=== PATIENT | female | born 1980 | race Caucasian/White ===

== ENCOUNTER 2016-12-10 21:36 | Emergency (ER) | payer BC ==
[2016-12-10 21:46] VITALS: BP 106/55
[2016-12-10] MEDS ORDERED: AMOX TR/POTASSIUM CLAVULANATE 875 MG TABLET PO ONE (21:53)
[2016-12-10] MEDS ORDERED: AMOX TR/POTASSIUM CLAVULANATE 875 MG TABLET ONE (21:54)
--- NOTE | 2016-12-10 21:57 | ERNOTE ---
Medical Problem HPI - Narrative Date of Service: 12/10/16 - General Chief Complaint: General Assessment Time Seen by Provider: 12/10/16 21:47 Source: patient, family - Immun/Allergies/Home Medications Immunizations: IMMUNIZATION HX Immunizations Up to Date Yes History of Influenza Vaccine Yes Hx Pneumococcal Vaccination No Allergies/Adverse Reactions: Allergies azithromycin [From Zithromax Z-Antonio] Allergy (Verified 11/10/13 15:16) Home Medications: HOME MEDICATIONS Vit No.128/Iron/FA [Eql Vitamin Tablet] 1 each PO DAILY [Last Taken 11/10/13 08:00] Docusate Sodium [Colace] 100 mg PO BID #0 capsule 11/12/13 [Last Taken Unknown] Ibuprofen [Motrin] 200 - 800 mg PO Q6H PRN #0 tablet 11/12/13 [Last Taken Unknown] Albuterol Sulfate [Proair Hfa] 1 - 2 puff IH Q4H PRN #1 inhaler 12/10/16 [Last Taken Unknown] Amox Tr/Potassium Clavulanate [Augmentin 875-125 Tablet] 875 mg PO Q12H #14 tab 12/10/16 [Last Taken Unknown] Pantoprazole Sodium [Protonix] 40 mg PO DAILY 12/10/16 [Last Taken Unknown] - History of Present History Narrative: This is a 36-year-old female who is 34 weeks comes into the emergency department complaining of some shortness of breath and malaise low-grade fever and joint pain. Patient says she woke up from a nap around 2:00 this afternoon. She says when she woke up she had a sour taste of acid in her mouth. She said she actually had some come out of her nose. She says she feels like she might have aspirated. The patient had an aspiration pneumonia with her last . Since the episode with the acid in her mouth and nose , she says she's become slightly short of breath, aching all over, feels just like when she had aspiration pneumonia in the past. She has been coughing. No significant chest discomfort. No other complaints. He says that the baby last moved on the way here in the car. He says he is usually more active at this time a night Review of Systems - Review of Systems Constitutional: Present: chills, malaise EYE: Present: no symptoms reported ENT: Present: no symptoms reported Respiratory: Present: shortness of breath, cough Cardiology: Present: no symptoms reported Gastrointestinal/Abdominal: Present: other Genitourinary: Present: no symptoms reported Musculoskeletal: Present: no symptoms reported Skin: Present: no symptoms reported - reflux Neurological: Present: no symptoms reported Endocrine: Present: no symptoms reported Hematologic/Lymphatic: Present: no symptoms reported Psych: Present: no symptoms reported All Other Systems: All systems neg except as marked - Patient's Past Medical History Patient History - Medical: No pertinent hx Patient History - Cardiac/Respiratory: Pneumonia, Other Patient History - Cancer: No Hx of Cancer Patient History - Surgical Procedures: No surgical history Patient History - Other: None - Social History Living Situations: home Abuse History: No History of abuse Psych History: No pertinent hx Smoking Status: Former smoker Alcohol Use: none Drug Use: none - Immunizations Immunizations Up to Date: Yes Hx Pneumococcal Vaccination: No History of Influenza Vaccine: Yes Physical Exam - Physical Exam General Appearance: Present: wd/wn, alert, no apparent distress Head Exam: Present: normal inspection, no evidence of injury Eye Exam: Normal inspection: bilateral, PERRL: bilateral, EOMI: bilateral Ears, Nose, Throat: Present: normal ENT inspection, normal pharynx Neck: Present: normal inspection, nontender Respiratory: Present: no respiratory distress, normal breath sounds, no accessory muscle use, chest nontender, lungs clear Cardiovascular/Chest: Present: regular rate, rhythm, no murmur, normal peripheral pulses Gastrointestinal/Abdominal: Present: normal bowel sounds, nontender, nondistended, soft, no organomegaly Back Exam: Present: normal inspection, normal range of motion, no CVA tenderness , no vertebral tenderness Extremity Exam: Present: normal inspection, non-tender, normal range of motion, no edema Neurological Exam: Present: alert, oriented, normal mood/affect, no motor/ sensory deficits Skin Exam: Present: normal color, warm/dry Lymphatic Exam: Present: no adenopathy ED Progress - Vital Signs Patient's Vital Signs:: I have reviewed the patient's vital signs. Vital Signs: Vital Signs 12/10/16 21:41 Temperature 36.4 C L Pulse Rate 96 Respiratory 18 Rate Blood Pressure 106/55 O2 Sat by Pulse 98 Oximetry - Progress/Reassessment Chief Complaint: General Assessment Departure Clinical Impression: Aspiration into respiratory tract - Departure Disposition: Left without seen by physician Condition: Good Instructions: Aspiration Pneumonia Additional Instructions: As we discussed, I don't think an x-ray is necessary. Your symptoms are similar to when he had the aspiration pneumonia in the past. He was certainly at risk being . You had acid in her mouth and nose when he woke up from her nap. It all makes clinical sense. Antibiotics will not cause difficulty. Certainly getting a pneumonia could. Next Take the prescribed Augmentin. Take it for all 7 days. Use the inhaler as needed. Go immediately over to OB to have monitoring performed. If you develop new concerning symptoms she should return to the ER. Follow-up family doctor Referrals: Ed Hung DO [Primary Care Provider] - Prescriptions: Albuterol Sulfate [Proair Hfa] 1 - 2 puff IH Q4H PRN #1 inhaler PRN Reason: Shortness Of Breath Amox Tr/Potassium Clavulanate [Augmentin 875-125 Tablet] 875 mg PO Q12H #14 tab
== END 2016-12-10 22:49 | disposition left against medical advice (07) ==
LOC: ER 21:36
DX: J69.0 Pneumonitis due to inhalation of food and vomit (principal); Z33.1 Pregnant state, incidental; Z3A.34 34 weeks gestation of pregnancy

== ENCOUNTER 2017-01-04 17:05 | Inpatient (IN) | payer BC ==
[2017-01-04] MEDS ORDERED: LIDOCAINE HCL 50 ML VIAL PERI PRN (17:15)
[2017-01-04] MEDS ORDERED: ONDANSETRON HCL/PF 2 MG/ML VIAL IV PRN (17:15)
[2017-01-04] MEDS ORDERED: OXYTOCIN/DEXTROSE 5%-WATER 30 UNITS/500 ML BAG IV ONE ×2 (17:15→20:18)
[2017-01-04] MEDS ORDERED: RINGER'S SOLUTION,LACTATED 1,000 ML IV ONE (17:15)
[2017-01-04] MEDS ORDERED: DEXTROSE 5%-LACTATED RINGERS 1,000 ML IV PRN (17:15)
[2017-01-04] MEDS ORDERED: GLYCERIN/WITCH HAZEL LEAF 40 APPL BOX TP PRN (20:18)
[2017-01-04] MEDS ORDERED: oxyCODONE HCL/ACETAMINOPHEN 1 TAB TABLET PO PRN (20:18)
[2017-01-04] MEDS ORDERED: HYDROCORTISONE 30 APPL TUBE TP PRN (20:18)
[2017-01-04] MEDS ORDERED: BISACODYL 10 MG SUPP.RECT RC PRN (20:18)
[2017-01-04] MEDS ORDERED: SENNOSIDES 8.6 MG TABLET PO PRN (20:18)
[2017-01-04] MEDS ORDERED: BENZOCAINE/MENTHOL 81 SPRAY CAN TP PRN (20:18)
--- NOTE | 2017-01-04 20:20 | OR ---
Operative Report - Dictated Report Narrative: Spontaneous vaginal delivery of viable male at 1937 on 01/04/2017 with Apgars 9 and 9, weighing 3517 g in KAYLI position. Cord clamping delayed approximately 1 minute Placenta delivered complete, intact, with three vessel cord Estimated blood loss: less than 50 ml Lacerations: First-degree vaginal laceration repaired with 3-0 Vicryl Rapide History for MU Definition: * The number of deliveries resulting in a live the patient experienced prior to current hospitalization * The previous delivery of live twins or any live multiple gestation is considered one live event. *If primagravida or nulliparous is documented select zero for the number of previous live births. Live Events: 3
[2017-01-04] MEDS: IBUPROFEN 800 MG TABLET PO PRN (20:52)
[2017-01-04] MEDS: oxyCODONE HCL/ACETAMINOPHEN 1 TAB TABLET PO PRN (21:11)
[2017-01-04] MEDS: DOCUSATE SODIUM 100 MG CAPSULE PO SCH (21:11)
[2017-01-05] MEDS: oxyCODONE HCL/ACETAMINOPHEN 1 TAB TABLET PO PRN ×7 (00:31→23:33)
[2017-01-05] MEDS: IBUPROFEN 800 MG TABLET PO PRN ×3 (03:39→18:43)
[2017-01-05] MEDS: DOCUSATE SODIUM 100 MG CAPSULE PO SCH ×3 (06:41→20:49)
--- NOTE | 2017-01-05 09:13 | PN ---
Subjective - Date and Time Seen Date: 01/05/17 Time: 09:13 Objective - Vitals Vitals: Last Vital Signs Temp 36.6 C 01/05/17 07:04 Pulse 70 01/05/17 07:04 Resp 16 01/05/17 07:04 BP 94/52 01/05/17 07:04 Pulse Ox Patient denies complaints. Lochia wnl Abdomen - soft, nontender Uterus - firm, at umbilicus - 1 No calf tenderness Impression: day #1 - s/p spontaneous vaginal delivery. Plan: Continue routine care
[2017-01-06] MEDS: IBUPROFEN 800 MG TABLET PO PRN ×2 (07:16→11:18)
[2017-01-06] MEDS: oxyCODONE HCL/ACETAMINOPHEN 1 TAB TABLET PO PRN ×2 (07:17→11:18)
[2017-01-06] MEDS: DOCUSATE SODIUM 100 MG CAPSULE PO SCH ×2 (07:17→09:50)
[2017-01-06 07:22] VITALS: BP 99/51
--- NOTE | 2017-01-06 09:41 | PN ---
Subjective - Date and Time Seen Date: 01/06/17 Time: 09:41 Objective - Vitals Vitals: Last Vital Signs Temp 36.3 C L 01/06/17 07:20 Pulse 81 01/06/17 07:20 Resp 18 01/06/17 07:20 BP 99/51 01/06/17 07:20 Pulse Ox 98 01/05/17 11:38 Patient denies complaints. Lochia wnl Abdomen - soft, nontender Uterus - firm, at umbilicus - 2 No calf tenderness Impression: day #2 - s/p spontaneous vaginal delivery. Plan: Routine discharge instructions
[2017-01-06] MEDS ORDERED: DOCUSATE SODIUM 100 MG CAPSULE PO PRN (14:09)
[2017-01-07] MEDS ORDERED: PRENATAL VITS96/IRON FUM/FOLIC 1 TAB TABLET PO SCH (09:00)
== END 2017-01-06 15:30 | disposition home or self-care (01) | DRG 775 ==
LOC: OB 17:05
PROVIDERS: ADMIT Obstetrics & Gynecology; ATTEND Obstetrics & Gynecology
PROC: 10E0XZZ Delivery of Products of Conception, External Approach (ICD-10-PCS; principal; 2017-01-04)
PROC: 4A1HXCZ Monitoring of Products of Conception, Cardiac Rate, External Approach (ICD-10-PCS; 2017-01-04)
PROC: 0HQ9XZZ Repair Perineum Skin, External Approach (ICD-10-PCS; 2017-01-04)
DX: O70.0 First degree perineal laceration during delivery (principal); Z3A.38 38 weeks gestation of pregnancy; Z37.0 Single live birth

== ENCOUNTER 2017-01-16 23:02 | Emergency (ER) | payer BC ==
--- NOTE | 2017-01-16 23:43 | ERNOTE ---
Medical Problem HPI - General Chief Complaint: General Assessment Time Seen by Provider: 01/16/17 23:33 Source: patient, family Exam Limitations: no limitations - Immun/Allergies/Home Medications Immunizations: IMMUNIZATION HX Immunizations Up to Date Yes History of Influenza Vaccine Yes Hx Pneumococcal Vaccination No Allergies/Adverse Reactions: Allergies azithromycin [From Zithromax Z-Antonio] Allergy (Verified 01/16/17 23:12) Pertussis Vaccines Adverse Reaction (Verified 01/16/17 23:12) salicylates Adverse Reaction (Verified 01/16/17 23:12) Home Medications: HOME MEDICATIONS Vit No.128/Iron/FA [Eql Vitamin Tablet] 1 each PO DAILY [Last Taken 01/03/17] Docusate Sodium [Colace] 100 mg PO BID PRN 01/04/17 [Last Taken 12/21/16] Ferrous Sulfate 325 mg PO DAILY #60 tablet 01/05/17 [Last Taken Unknown] Ibuprofen [Motrin] 200 - 800 mg PO Q6H PRN #100 tab 01/05/17 [Last Taken Unknown ] L.acidoph,Paracasei, B.lactis [Probiotic] 1 each PO DAILY 01/16/17 [Last Taken Unknown] Methylergonovine Maleate [Methergine] 0.2 mg PO TID #5 tablet 01/17/17 [Last Taken Unknown] Misoprostol [Cytotec] 200 mcg PO TID #4 tablet 01/17/17 [Last Taken Unknown] - History of Present History Narrative: Pt had a 12 days ago. Today she began vaginal bleeding. Was not having much bleeding before today and began to have clots around 1:00 this afternoon. Timing: getting worse Severity: mild Review of Systems - Review of Systems Constitutional: Present: weakness. Absent: recent illness, fever, chills EYE: Present: no symptoms reported. Absent: vision changes ENT: Present: no symptoms reported Respiratory: Absent: shortness of breath Cardiology: Absent: chest pain Gastrointestinal/Abdominal: Absent: nausea, vomiting Genitourinary: Present: See HPI, pain - uterine cramping Musculoskeletal: Present: no symptoms reported Skin: Present: no symptoms reported Neurological: Present: dizziness/light-headedness Endocrine: Present: excessive sweating Hematologic/Lymphatic: Present: no symptoms reported Psych: Present: no symptoms reported - Patient's Past Medical History Patient History - Medical: No pertinent hx Patient History - Cardiac/Respiratory: Pneumonia, Other Patient History - Cancer: No Hx of Cancer Patient History - Surgical Procedures: No surgical history Patient History - Other: None - Social History Living Situations: home Abuse History: No History of abuse Psych History: No pertinent hx Smoking Status: Former smoker Alcohol Use: occasionally Drug Use: none - Immunizations Immunizations Up to Date: Yes Hx Pneumococcal Vaccination: No History of Influenza Vaccine: Yes Physical Exam - Physical Exam General Appearance: Present: wd/wn, alert, no apparent distress Head Exam: Present: normal inspection, no evidence of injury Eye Exam: Normal inspection: bilateral Neck: Present: normal inspection, nontender, supple Respiratory: Present: no respiratory distress, no accessory muscle use Gastrointestinal/Abdominal: Present: tenderness - uterine. Uterus boggy, at -2 Pelvic Exam: Present: deferred - pt declined pelvic exam Back Exam: Present: normal inspection, no CVA tenderness Extremity Exam: Present: normal inspection, normal range of motion, no edema Neurological Exam: Present: alert, oriented, normal mood/affect, no motor/ sensory deficits Skin Exam: Present: normal color, warm/dry Lymphatic Exam: Present: no adenopathy ED Progress - Results and Orders Patient's Lab Results:: I have reviewed the patient's lab results. Results and Orders: Laboratory Tests 01/16/17 01/16/17 01/16/17 23:50 23:50 23:50 WBC 10.2 Hgb 11.2 L Hct 34.5 L Plt Count 305 PT 10.3 INR (Anticoag Therapy) 1.03 PTT (Pope) 27.5 Sodium 141 Potassium 3.5 Chloride 107 H Carbon Dioxide 25.2 BUN 16 Creatinine 0.91 Random Glucose 106 Calcium 8.1 Total Bilirubin 0.2 AST 11 ALT 18 L Alkaline Phosphatase 97 Total Protein 6.3 Albumin 2.9 L - Vital Signs Patient's Vital Signs:: I have reviewed the patient's vital signs. Vital Signs: Vital Signs 01/16/17 23:07 Temperature 36.6 C Pulse Rate 79 Respiratory 18 Rate Blood Pressure 129/70 O2 Sat by Pulse 99 Oximetry - Progress/Reassessment Chief Complaint: General Assessment Progress:: Improved Progress Note-Subjective: 01/17/17 00:[address] Hung about Beth, PE and labs. He recommends 200 mcg cytotec [place] now and PO q 8 hours x2 days and Methergine 0.2 mg IM now and PO every 8 hours for 2 days. Discussed this plan with the patient and she expressed agreement. Departure Clinical Impression: hemorrhage, delayed (> 24 hrs) - Departure Disposition: Home Follow Up Needed Condition: Good Instructions: Hemorrhage Additional Instructions: Take the misoprostol (two small tabs) at around 9 am tomorrow. upsetter helper the prescriptions and take a dose of the methylergonovine as close to 9 am as possible. Drink plenty of fluids. Avoid over exertion. Continue to take both medications every 8 hours for 2 days. Follow up with Dr. Hung as needed or previously scheduled. Referrals: Ed Hung DO [Primary Care Provider] - Prescriptions: Methylergonovine Maleate [Methergine] 0.2 mg PO TID #5 tablet Misoprostol [Cytotec] 200 mcg PO TID #4 tablet
[2017-01-16 23:57] LABS: Hematocrit 34.5 % (37.0-47.0); Hemoglobin 11.2 gm/dL (12.5-16.0); Mean Cell Volume 87.8 fl (78-100); Mean Corpuscular Hemoglobin 28.5 pg (27-31); Mean Corpuscular Hgb Conc 32.5 g/dl (32-36); Mean Platelet Volume 9.4 fl (6.0-9.5); Neutrophil # 6.9 K/mm3 (1.3-6.0); Platelet Count 305 K/mm3 (150-450); Red Blood Count 3.93 M/mm3 (4.2-5.4); Red Cell Distribution Width 13.2 % (11.5-14.0); White Blood Count 10.2 K/mm3 (4.0-10.5)
[2017-01-17 00:07] LABS: INR 1.03 INR (0.90-1.10); Prothrombin Time (Patient) 10.3 Seconds (9.0-11.0)
[2017-01-17 00:08] LABS: Partial Thrombolplastin Time 27.5 Seconds (24-32)
[2017-01-17 00:09] LABS: Albumin * 2.9 gm/dl (3.4-5.0); Anion Gap 12.3 mmol/L (6.8-13.8); BUN/Creatinine Ratio 17.6 (9.0-21.6); Bilirubin, Total 0.2 mg/dL (0.0-1.1); Ca. Corrected For Albumin 8.7 mg/dL (8.4-10.2); Calcium * 8.1 mg/dL (7.9-10.9); Carbon Dioxide 25.2 mmol/L (24-32.6); Potassium 3.5 mmol/L (3.4-4.6); Total Protein 6.3 gm/dL (6.2-8.2)
[2017-01-17] MEDS ORDERED: METHYLERGONOVINE MALEATE 0.2 MG/ML AMPUL IM ONE (00:31)
[2017-01-17] MEDS ORDERED: METHYLERGONOVINE MALEATE 0.2 MG/ML AMPUL ONE (00:35)
[2017-01-17] MEDS ORDERED: MISOPROSTOL 100 MCG TABLET ONE (00:39)
[2017-01-17] MEDS ORDERED: MISOPROSTOL 200 MCG TABLET RC ONE (01:15)
[2017-01-17 02:31] VITALS: BP 94/52
[2017-01-17] MEDS ORDERED: MISOPROSTOL 200 MCG TABLET PO ONE (09:30)
== END 2017-01-17 01:30 | disposition home or self-care (01) ==
LOC: ER 23:02
DX: O72.2 Delayed and secondary postpartum hemorrhage (principal); Z87.891 Personal history of nicotine dependence